=== PATIENT | male | born 1995 | race Caucasian/White ===

== ENCOUNTER 2018-04-04 23:09 | Observation (INO) | payer BC, OTHER ==
[2018-04-05] MEDS ORDERED: NA CHLORIDE 0.9% 1,000 ML ONE ×3 (00:09→02:50)
[2018-04-05 00:13] LABS: Absolute Lymphocytes (CBC) 0.9 K/uL (0.7-4.9); Absolute Monocytes 0.8 K/uL (0.1-1.3); Absolute Neutrophil 11.9 K/uL (1.8-8.0); Basophils % 0.3 % (0-1.3); Eosinophils % 0.4 % (0-4.4); Hematocrit 47.1 % (39.6-49.0); Lymphocytes % 6.6 % (15.3-44.8); MPV 9.7 fL (7.6-11.3); RBC Red Blood Cell Count 5.58 M/uL (4.33-5.43)
[2018-04-05] MEDS ORDERED: ONDANSETRON 4 MG/2 ML VIAL ONE (00:25)
[2018-04-05 00:29] LABS: ALT/SGPT 30 U/L (12-78); AST/SGOT 20 U/L (15-37); Alkaline Phosphatase 60 U/L (45-117); BUN Blood Urea Nitrogen 22 mg/dL (7-18); Bicarbonate 23 mmol/L (21-32); Bilirubin Direct 0.2 mg/dL (0-0.2); Bilirubin Total 0.5 mg/dL (0.2-1.0); CKMB Creatine Kinase MB 1.5 ng/mL (0.3-3.6); Creatine Phosphokinase 413 U/L (39-308); Glucose Level 121 mg/dL (74-106); Magnesium 2.1 mg/dL (1.8-2.4); Potassium 3.6 mmol/L (3.5-5.1); Protein, Total 7.3 g/dL (6.4-8.2); Sodium Level 138 mmol/L (136-145); Troponin I < 0.02 ng/mL (0.0-0.045)
[2018-04-05] MEDS ORDERED: DIPHENOX/ATROP SULF 1 TAB PO ONE (01:37)
[2018-04-05 01:50] LABS: Calcium Oxalate Crystals- Ur FEW (NONE SEEN); Urine Bacteria 20-50 /HPF (NONE SEEN); Urine Culture Reflex Order REFLEXED; Urine RBC NONE SEEN /HPF (NONE SEEN)
[2018-04-05 01:53] LABS: Urine Blood NEGATIVE (NEG); Urine Glucose NEGATIVE (NEG); Urine Protein 3+ (NEG); Urine Specific Gravity >1.030 (1.005-1.030); Urine pH 5.5 (5.0-7.0)
[2018-04-05 02:00] LABS: Blood Morphology Comment NOT SEEN (NOT SEEN); Platelet Estimate ADEQ
[2018-04-05 02:33] LABS: Potassium 3.5 mmol/L (3.5-5.1)
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
[2018-04-05] MEDS: NA CHLORIDE 0.9% 1,000 ML IV SCH ×2 (05:45→09:48)
[2018-04-05] MEDS ORDERED: ONDANSETRON 4 MG/2 ML VIAL IV PRN (05:45)
[2018-04-05] MEDS ORDERED: KCL 20 MEQ/100 mL IVPB 20 MEQ/100 ML BAG IV SCH (06:00)
[2018-04-05] MEDS ORDERED: TRAMADOL HCL 50 MG TAB PO PRN (08:08)
--- NOTE | 2018-04-05 08:54 | EKG ---
Test Date: 2018-04-04 Test Time: 23:57:31 Assembler Tester: JAGRUTI MEASUREMENT RESULTS: Intervals: Rate: 118 CA: 148 QRSD: 98 QT: 318 QTc: 445 [place]: P: 55 CA: 148 QRS: 63 T: 15 INTERPRETIVE STATEMENTS: Sinus tachycardia Otherwise normal ECG No previous ECG available for comparison Electronically Signed On 04-05-18 08:52:57 SECOND BUTLER by Herbert Hunt
[2018-04-05] MEDS ORDERED: INFLUENZA VACCINE (for 3y+) 0.5 ML DOSE IMVAC ONE (09:00)
[2018-04-05] MEDS: CIPROFLOXACIN 400mg IV 400 MG/200 ML BAG IV SCH ×2 (09:46→22:02)
[2018-04-05] MEDS: METRONIDAZOLE 500mg IVPB 500 MG/100 ML BAG IV SCH ×2 (09:47→16:48)
[2018-04-05] MEDS: HYDROCODONE/APAP 7.5/325 MG TAB PO PRN ×2 (09:47→16:55)
[2018-04-05] MEDS: ENOXAPARIN 40 MG/0.4 ML SQ SCH (09:47)
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
[2018-04-05] MEDS: NACHLORIDE 0.45% 1,000 ML IV SCH ×2 (11:34→16:52)
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
[2018-04-05 15:54] LABS: Absolute Lymphocytes (CBC) 1.2 K/uL (0.7-4.9); Absolute Monocytes 0.5 K/uL (0.1-1.3); Absolute Neutrophil 3.3 K/uL (1.8-8.0); Basophils % 0.6 % (0-1.3); Eosinophils % 4.6 % (0-4.4); Hematocrit 41.7 % (39.6-49.0); Lymphocytes % 22.6 % (15.3-44.8); MPV 9.7 fL (7.6-11.3); Monocytes % 10.2 % (3.3-12.3); RBC Red Blood Cell Count 4.91 M/uL (4.33-5.43)
[2018-04-05 15:58] LABS: Potassium 3.8 mmol/L (3.5-5.1)
[2018-04-05] MEDS: FAMOTIDINE 20 MG TAB PO SCH (22:01)
[2018-04-06] MEDS: METRONIDAZOLE 500mg IVPB 500 MG/100 ML BAG IV SCH ×2 (00:45→08:54)
[2018-04-06] MEDS: NACHLORIDE 0.45% 1,000 ML IV SCH (03:00)
[2018-04-06 07:21] LABS: Potassium 4.1 mmol/L (3.5-5.1)
[2018-04-06] MEDS: CIPROFLOXACIN 400mg IV 400 MG/200 ML BAG IV SCH (08:54)
[2018-04-06] MEDS: FAMOTIDINE 20 MG TAB PO SCH (08:55)
[2018-04-06] MEDS: ENOXAPARIN 40 MG/0.4 ML SQ SCH (08:57)
[2018-04-06] MEDS: HYDROCODONE/APAP 7.5/325 MG TAB PO PRN (09:18)
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
--- NOTE | 2018-04-06 13:36 | PN ---
Date of Progress Note: 04/06/2018 Subjective: The patient is awake and alert. No complaint. Tolerating diet. Objective: Vital signs: Stable, afebrile. Abdomen: Completely benign. Laboratory Data: Creatinine is almost normalized. Assessment: Likely gastroenteritis. Recommendations: The patient cleared for discharge from Surgery standpoint, on oral antibiotics. Chelsie SRIVASTAVA/LEIF Voice ID: [id number] Report ID: [id number]
--- NOTE | 2018-04-07 10:34 | RAD REPORT ---
EXAM DESCRIPTION: CT abdomen and pelvis without IV contrast CLINICAL HISTORY: Acute renal failure TECHNIQUE: Axial CT imaging of the abdomen and pelvis was performed. Sagittal and coronal reconstr ucted images were then performed. The CT study is performed according to ALARA (as low as reasonably achievable) or ALARA/IMAGE GENTLY, with automatic adjustment of mA and/or kV according to patient sinixon regalado. Performed on: 04/05/2018 at 3:10 AM Comparison: None. FINDINGS: Lung bases: The lung bases are clear. Liver: The liver is enlarged and measures 20 cm in craniocaudal dimension. No focal hepatic abnormali ties are appreciated on this unenhanced scan. Liver attenuation is within normal limits. Spleen: The spleen is top normal in size and measures 13 cm in craniocaudal dimension. No focal splen ic abnormalities are appreciated on this unenhanced scan. Gallbladder and bile duct: The gallbladder is partially distended. There is no biliary ductal dilat ation. Pancreas: The pancreas is grossly normal in size and configuration. Adrenal Glands: The adrenal glands are normal in size and configuration. Kidneys: The kidneys are normal in size and configuration. There is no evidence of hydronephrosis. Th ere is no evidence of nephrolithiasis. No focal renal abnormalities are identified. Stomach: The stomach is grossly normal. There is no definite hiatal hernia. Bowel: There are multiple borderline dilated fluid-filled small bowel loops within the lower abdomen and pelvis possibly related to an ileus, gastroenteritis possibly mid small bowel obstruction. The co marion is normal in caliber and contour. Appendix: The appendix is normal. Free air: There is no evidence of free air. Free fluid: There is no evidence of free fluid. Vasculature: The aorta is normal in caliber and contour. The inferior vena cava is grossly unremarkab le. Lymphadenopathy: No pathologic lymphadenopathy is identified. Bladder: The bladder is partially distended and smooth in contour. Reproductive: The prostate gland is grossly within normal limits. Bones: No acute osseous abnormalities are identified. There are degenerative changes of the lumbar sp ine and there is a prominent disc osteophyte complex at L1-L2. There is straightening of the lumbar l ordosis. Soft tissues: No focal soft tissue abnormalities are identified. IMPRESSION: 1. There are multiple borderline dilated fluid-filled small bowel loops throughout the l ower abdomen and pelvis possibly related to an ileus, gastroenteritis or possibly mid small bowel obs truction. 2. Hepatomegaly and borderline splenomegaly. 3. Prominent disc osteophyte complex at L1-L2. Electronically signed by: Becky Avalos DO 04/05/2018 3:34 AM [employer] Due to temporary technical issues with the PACS/Fluency reporting system, reports are being signed by the in house radiologist as a courtesy to ensure prompt reporting. The interpreting radiologist is f ully responsible for the content of the report. ADDENDUM #1 These findings were discussed with Dr. Sewell on 04/05/2018 at 3:47 AM central time Electronically signed by: Becky Avalos DO 04/05/2018 3:50 AM [employer] TE[employer] End of Addendum
== END 2018-04-06 12:45 | disposition home or self-care (01) ==
LOC: ER 23:09 → ERHOLD 04-05 03:33 → 4TH 04-05 05:15
PROVIDERS: ADMIT Internal Medicine; ATTEND Internal Medicine
DX: R19.7 Diarrhea, unspecified (principal); N17.9 Acute kidney failure, unspecified; E86.0 Dehydration; S40.812A Abrasion of left upper arm, initial encounter; Y35.811A Legal intervention involving manhandling, law enforcement official injured, initial encounter; Y92.828 Other wilderness area as the place of occurrence of the external cause; E66.9 Obesity, unspecified; Z68.33 Body mass index [BMI] 33.0-33.9, adult
CPT/HCPCS: 36415; 74176; 76377; 80048; 80076; 81003; 81015; 82550; 82553; 83735; 84145; 84484; 85025; 87040; 87045; 87046; 87086; 87088; 87493; 93005; 96361; 96374; 99285; G0378; J0744; J1650; J2405; J7030